=== PATIENT | male | born 1955 | race Caucasian/White ===

== ENCOUNTER → 2017-12-26 06:41 | Outpatient (CLI) | payer OTHER, SELFPAY ==
--- NOTE | 2017-12-26 | DI.US.S_ITS ---
PROCEDURE: US RENAL COMPLETE INDICATIONS: HISTORY RENAL CYSTS TECHNIQUE: Real-time scanning was performed of the kidneys and bladder, with image documentation. COMPARISON: None. FINDINGS: Kidneys: Kidneys are normal in size. Right kidney measures 11.4 cm long; left kidney measures 11.9 cm long. Right renal cortical thickness is 2.1 cm; left renal cortical thickness is 1.7 cm. Renal cortical echotexture is normal. No hydronephrosis or nephrolithiasis. No suspicious solid mass lesions. Bladder: Pre-void bladder volume is 172 mL. Post-void residual is 17 mL. Pre-void images demonstrate no intraluminal masses or stones. On pre-void images, bilateral ureteral jets are noted with color Doppler interrogation. (Of note, ureteral jets may not be detectable in up to 25% of cases due to insufficient differences in specific gravity between ureteral and bladder urine). Miscellaneous: No free pelvic fluid. IMPRESSION: Normal examination bilaterally. Dictated by: Marco Royal M.D. on 12/26/2017 at 9:33 Approved by: Marco Royal M.D. on 12/26/2017 at 9:34
== END ==
PROVIDERS: Visit Provider Nurse Practitioner
DX: Z86.39 Personal history of other endocrine, nutritional and metabolic disease (principal)
CPT/HCPCS: 76770

== ENCOUNTER 2018-03-29 08:41 | Day surgery (SDC) | payer OTHER, SELFPAY ==
--- NOTE | 2018-03-29 | PATH_ITS ---
[facility] Accession Number: [id number] . 01 Material submitted: . TRANSVERSE COLON POLYP X2 . 02 Diagnosis: Transverse Colon, Polyps x2, Biopsies: Tubular adenoma. Sessile serrated adenoma. [facility]/03/30/2018 . 02 Electronically signed: . Cindy Sprague MD, Pathologist NPI- [id number] . 01 Gross description: . Received one formalin-filled container labeled with the patient's name and labeled transverse colon polyp x2 are two 0.2 to 0.4 cm portions of tissue. Entirely submitted in one cassette. ([facility] [place]:[id number]) /[facility] . 02 Pathologist provided ICD-10: D12.3 . 02 CPT . 922593 Specimen Comment: A duplicate report has been generated due to demographic updates. Performed at: 01 [facility] [address] [id number] MD Gregg Marino MD Phone: [phone] Performed at: 02 [facility] [id number] [place] [id number] MD Dayday Lovelace MD Phone: [phone]
--- NOTE | 2018-03-29 08:50 | PM.HP.1 ---
History of Present Illness Date Patient Seen: 03/29/18 Chief complaint: [id number] Narrative: 63-year-old male with a history of colon polyps in the past of unclear pathology. The patient had a prior colonoscopy performed in 2010 which revealed a hyperplastic polyp however a surveillance colonoscopy was recommended in 5 years. The patient is here today for polyp surveillance. He has no active GI symptoms. There is no clear family history of colon cancer. Meds Home Medications Medication Instructions Recorded Confirmed Type [flaxseed] #0 02/10/17 History aspirin 81 mg PO QDAY #0 02/10/17 History multivitamin [Multiple Vitamins] 1 tab PO QDAY #0 02/10/17 History Allergies Allergy/AdvReac Type Severity Reaction Status Date / Time penicillin G [PENICILLIN G] Allergy Mild Verified 03/29/18 08:59 Review of Systems Review of Systems All systems reviewed & are unremarkable except as noted in HPI and below Exam Narrative Exam Narrative: General: Patient is well developed, not in apparent distress Cardiovascular: Regular rate and rhythm, no murmurs, rubs, or gallops; no evidence of edema; no palpable abdominal aortic aneurysm Gastrointestinal: Normoactive bowel sounds, soft, nontender, nondistended, no rebound tenderness, no hepatosplenomegaly, no evidence of hernia Assessment & Plan Plan: Assessment/Plan Narrative: 63-year-old male who is here for colon polyp surveillance. Last colonoscopy 2010 showing a hyperplastic polyp however prior colonoscopy to that showed polyps of unknown pathology. No active GI symptoms at present Regarding the procedure(s), the risks and potential complications, benefits, and alternatives (including not doing the procedure) were discussed with the patient. The risks include but are not limited to bleeding, infection, perforation which may require surgical intervention, missed lesions, and adverse reactions to sedative medicines. After a question and answer period, the patient agreed to proceed with the procedure(s) and gives informed consent.
[2018-03-29] MEDS: SODIUM CHLORIDE 0.9% 1,000 ML 70 ML IV (08:52)
[2018-03-29 08:53] VITALS: BP 131/80; PULSE 69; RESP 16; TEMP 36.4; O2SAT 98; BMI 22.3
[2018-03-29 09:02] VITALS: BMI 22.3
[2018-03-29] MEDS: fentaNYL 250 MCG/5 ML INJ IV (09:36)
[2018-03-29] MEDS: MIDAZOLAM 5 MG/5 ML VIAL IV (09:37)
--- NOTE | 2018-03-29 09:42 | PM.OP.ENDO ---
Operative Date/Time/Diagnoses Date of procedure: 03/29/18 Procedure Notes Procedure in detail: Surgeon: Thuan Singh MD Procedure: Colonoscopy with polypectomy Preoperative diagnosis: Colon polyp surveillance, last colonoscopy 2010 showing hyperplastic polyps; prior colonoscopy showing polyps of on known histology Postoperative diagnosis: Colon polyp status post polypectomy, sigmoid diverticulosis, grade 1 internal hemorrhoids Medications: Conscious sedation using 4 mg IV of Midazolam and 100 mcg IV of Fentanyl Preanesthesia Assessment An H and P was performed/updated and the Px?s ASA class is 1. The procedure was discussed in detail with the patient. The potential risks and complications including infection, bleeding, missed lesions, perforation, need for surgery in case of perforation, prolonged hospital stay, and were explained. A brief question and answer period was allotted and once all questions were answered, informed consent was obtained. The patient was brought back to the procedure room and placed on standard monitoring. The patient?s vital signs were monitored continuously throughout the entire procedure. Prior to starting, a timeout was performed to confirm the patient?s identity, allergies, medications, and procedure. Procedure in detail The patient was placed in left lateral decubitus position and once adequate sedation was obtained a KWABENA was performed. The digital rectal examination did not reveal any palpable lesions. The tip of the colonoscope was placed in the anal canal and advanced without difficulty all the way to the cecum which was identified by the appendiceal orifice and the ileocecal valve. The terminal ileum was intubated to distance of 5 cm from the ileocecal valve and the mucosa appeared normal. The colonoscope was brought back to the cecum and careful examination of all talley of the colon was performed with irrigation of any residual stool. In the transverse colon, there was note of a 2 mm and 3 mm polyp, both of which were removed by means of cold Jumbo forceps. Excision and retrieval were complete with minimal bleeding In the sigmoid colon, there was note of a few small diverticula Retroflexion was performed in the rectum which revealed grade 1 internal hemorrhoids The patient tolerated the procedure well and will be brought back to the recovery area to be discharged once criteria are met. The prep was judged to be good and adequate to identify polyps less than 5 mm. The withdrawal time was 12 min. The total physician intraservice time was 17 min. Complications There were no complications and estimated blood loss was minimal. Recommendations: Resume previous diet Continue outPx medications Follow up pathology results Repeat colonoscopy in 5 or 10 years depending on pathology results An emergency contact number was given to the patient for any complications related to the procedure
--- NOTE | 2018-03-29 09:47 | PM.DS.1 ---
History of Present Illness Chief complaint: [id number] Narrative: 63-year-old male with a history of colon polyps in the past of unclear pathology. The patient had a prior colonoscopy performed in 2010 which revealed a hyperplastic polyp however a surveillance colonoscopy was recommended in 5 years. The patient is here today for polyp surveillance. He has no active GI symptoms. There is no clear family history of colon cancer. Discharge Providers Discharge provider: Thuan Singh MD Exam Vital Signs (past 8 hours): - 03/29/18 08:53 Temperature 97.6 F Pulse Rate 69 Respiratory Rate 16 Blood Pressure 131/80 Pulse Oximetry 98 Oxygen Delivery Method Room Air Narrative Exam Narrative: General: Patient is well developed, not in apparent distress Cardiovascular: Regular rate and rhythm, no murmurs, rubs, or gallops; no evidence of edema; no palpable abdominal aortic aneurysm Gastrointestinal: Normoactive bowel sounds, soft, nontender, nondistended, no rebound tenderness, no hepatosplenomegaly, no evidence of hernia Discharge Plan Discharge Plan Patient Disposition: Home Discharge Med Rec/Prescriptions Prescriptions: Continue multivitamin [Multiple Vitamins] 1 EACH tablet 1 tab PO QDAY Qty: 0 RF: 0 aspirin 81 MG tablet,delayed release (DR/EC) 81 mg PO QDAY Qty: 0 RF: 0 [flaxseed] Qty: 0 RF: 0 Discharge Orders: Discharge (Order); Ordered 03/29/18 Ordered By: Thuan Singh Provider Discharge Instructions Diet: Diet as Tolerated Visit Report/Discharge Packet Stand Alone Forms: Surgery Discharge Discharge Data Attending Provider: Thuan Singh
[2018-03-29 09:50] VITALS: BP 124/75; PULSE 71; RESP 15; TEMP 36.6; O2SAT 99
--- NOTE | 2018-03-29 09:50 | SUR.PHASEII ---
pt arrived awake from endo room. bonita monreal.message left on 's phone that pt is ready for discharge. Pt report given to Mirna.
== END 2018-03-29 10:41 | disposition home or self-care (01) ==
PROVIDERS: Visit Provider Internal Medicine Gastroenterology
PROC: 0DJD8ZZ Inspection of Lower Intestinal Tract, Via Natural or Artificial Opening Endoscopic (ICD-10-PCS; CPT 45378; principal; 2018-03-29 09:30)
DX: Z86.010 Personal history of colon polyps (principal); K57.30 Diverticulosis of large intestine without perforation or abscess without bleeding; K64.0 First degree hemorrhoids; D12.3 Benign neoplasm of transverse colon
CPT/HCPCS: 45380; J2250; J3010

== ENCOUNTER → 2019-03-15 08:48 | Outpatient (CLI) | payer OTHER, SELFPAY ==
--- NOTE | 2019-03-15 09:11 | DI.CT.S_ITS ---
PROCEDURE: CT ABDOMEN PELVIS WO CON INDICATIONS: Localized swelling, mass and lump, unspecified TECHNIQUE: Noncontrast 5 mm thick sections acquired from the diaphragms to the symphysis. 5 mm coronal and sagittal reformats were then performed. For radiation dose reduction, the following was used: automated exposure control, adjustment of mA and/or kV according to patient size. COMPARISON: [facility], , RENAL COMPLETE, 12/26/2017, 7:24. FINDINGS: Image quality: Excellent. ABDOMEN: Lung bases: Lung bases are clear. Heart size is normal. Solid organs: Liver is normal in size. Gallbladder appears normal. Pancreas is normal in contours. Spleen is normal in size. No adrenal nodules. Kidneys are normal in size, without hydronephrosis or nephrolithiasis. Peritoneum and bowel: Unenhanced bowel loops demonstrate normal wall thickness and caliber. No free fluid or air. Nodes and vessels: No retroperitoneal or mesenteric adenopathy by size criteria. Aorta and inferior vena cava are normal in caliber. Miscellaneous: No ventral hernias. PELVIS: Genitourinary: Bladder wall thickness is normal. Miscellaneous: No inguinal hernias or adenopathy. Bones: No suspicious bony lesions. No vertebral body compression fractures. IMPRESSION: Through the visualized abdomen and pelvis no underlying lesion is found. Please note that the study is significantly reduced in diagnostic power by the absence of both oral and intravenous contrast. Followup contrast-enhanced CT scanning may be warranted. The exact site of clinical concern is not defined but within the constraints of this study no underlying infection or neoplasm is identified. Dictated by: Marco Royal M.D. on 03/15/2019 at 9:22 Approved by: Marco Royal M.D. on 03/15/2019 at 9:26
== END ==
PROVIDERS: Visit Provider Nurse Practitioner
DX: R22.9 Localized swelling, mass and lump, unspecified (principal)
CPT/HCPCS: 74176